=== PATIENT | female | born 1990 | race Caucasian/White ===

== ENCOUNTER 2017-03-05 23:20 | Emergency (ER) | payer SELFPAY ==
[~2017-03-05 23:20] MED LIST: PERC5TAB12 PO
[2017-03-05 23:21] VITALS: BP 140/81; PULSE 88; RESP 16; TEMP 98; O2SAT 100
[2017-03-05] MEDS ORDERED: PROZ20CA11 PO (23:23)
[2017-03-05] MEDS ORDERED: HYDR-3583 PO (23:23)
[2017-03-05] MEDS ORDERED: CEPH250C PO (23:26)
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
== END 2017-03-06 00:09 | disposition home or self-care (01) ==
LOC: NEPD 23:20
DX: M79.642 Pain in left hand (principal); M25.522 Pain in left elbow; M25.562 Pain in left knee; M48.00 Spinal stenosis, site unspecified; Z79.899 Other long term (current) drug therapy
CPT/HCPCS: 99282